=== PATIENT | female | born 1975 | race Caucasian/White ===

== ENCOUNTER 2021-05-07 07:39 | Emergency (ER) | payer BC ==
[~2021-05-07] VITALS: Ht 160 cm; Wt 63.5 kg
[2021-05-07 08:12] LABS: BASOPHILS % (AUTO) 0.6 % (0.0-5.0); EOSINOPHILS % (AUTO) 0.4 % (0.0-8.0); HEMATOCRIT 37.5 % (36-48); LYMPHOCYTES % (AUTO) 15.4 % (21.0-51.0); MEAN CORPUSCULAR HEMOGLOBIN 31.4 pg (27.0-33.0); MEAN CORPUSCULAR HGB CONC 34.4 g/dL (32.0-36.0); MEAN CORPUSCULAR VOLUME 91.2 fL (79-99); MONOCYTES % (AUTO) 3.8 % (3.0-13.0); NEUTROPHILS % (AUTO) 79.3 % (40.0-77.0); PLATELET COUNT (AUTO) 202 K/uL (130-400); RED BLOOD CELL COUNT(AUTO) 4.11 MIL/uL (4.00-5.50); RED CELL DISTRIBUTION WIDTH 11.9 % (11.0-15.5); WHITE BLOOD COUNT (AUTO) 9.8 K/uL (4.8-10.8)
[2021-05-07 08:17] LABS: CREATININE 0.9 mg/dL (0.5-1.5); POTASSIUM 3.4 mmol/L (3.5-5.1)
[2021-05-07 08:21] LABS: ALBUMIN 4.2 g/dL (3.5-5.0); BILIRUBIN,TOTAL 0.6 mg/dL (0.2-1.0); MAGNESIUM 1.8 mg/dL (1.80-2.40); TOTAL PROTEIN, SERUM 7.5 g/dL (6.0-8.3)
[2021-05-07] MEDS ORDERED: ONDANSETRON 4MG INJ ONE (08:23)
[2021-05-07] MEDS ORDERED: 0.9%NACL 1000ML 1,000 ML IV ONE ×3 (08:30→11:30)
[2021-05-07 08:44] LABS: B-TYPE NATRIURETIC PEPTIDE 13 pg/mL (0-100)
[2021-05-07] MEDS ORDERED: DILTIAZEM 125 MG/25 ML INJ IV ONE ×2 (09:53→12:05)
[2021-05-07] MEDS ORDERED: DILTIAZEM 25MG INJ IVP SCH ×2 (10:00→11:30)
[2021-05-07] MEDS ORDERED: KCL 20 MEQ ERTAB PO ONE (10:00)
[2021-05-07] MEDS ORDERED: ONDANSETRON 4MG INJ IVP ONE (10:30)
[2021-05-07] MEDS ORDERED: MECLIZINE HCL 25 MG TABLET ONE (12:20)
[2021-05-07 17:12] VITALS: BP 99/62
== END 2021-05-07 17:46 | disposition home or self-care (01) ==
LOC: EDH 07:39
DX: I48.91 Unspecified atrial fibrillation (principal); R55 Syncope and collapse
CPT/HCPCS: 36415; 70450; 80053; 83735; 83880; 84484; 85025; 93005 ×2; 93306; 93356; 96361; 96374; 96375; 96376; 99285; J2405 ×2; J3490 ×2; J7030 ×3